=== PATIENT | female | born 1990 | race African-American/Black ===

== ENCOUNTER 2017-03-13 18:38 | Emergency (ER) | payer SELFPAY ==
[2017-03-13 18:53] VITALS: BP 128/75
[2017-03-13] MEDS ORDERED: Amoxicillin 500 MG Cap PO ONE (19:14)
--- NOTE | 2017-03-13 19:15 | EDM.PDOC ---
ED HPI GENERAL MEDICAL PROBLEM - General Chief Complaint: General Stated Complaint: FACIAL PAIN RIGHT SIDE Time Seen by Provider: 03/13/17 18:52 Source of Information: Reports: Patient History Limitations: Reports: No limitations - History of Present Illness INITIAL COMMENTS - FREE TEXT/NARRATIVE: Patient is a 27 year old female who presents to the E.D. today complaining of pain to the left side of the face/ear. States two weeks ago had onset of cold like symptoms that has gradually improved. States 4 days ago developed left sided ear pain that has progressively worsened. Has utilized ibuprofen and tylenol in alternating fashion for pain with some relief. Pain is rated a 7/10 described as a dull ache/ sharp. States with laying down the ear pain worsens. Patient denies any sinus congestion, runny nose, fever/chills, n/v, generalized body aches, vision changes, dizziness, or any additional complaints. Onset: gradual Duration: Constant Location: Reports: head Quality: Reports: Ache, Sharp Severity: moderate Improves with: Reports: Medication Worsens with: Reports: None Context: Reports: Other (sick) Associated Symptoms: Reports: no other symptoms Treatments OPHTHALMIC DISPENSER: Reports: Acetaminophen, NSAIDS Left Head Pain Score (Numeric/FACES): 5 - Related Data Allergies Allergy/AdvReac Type Severity Reaction Status Date / Time No Known Allergies Allergy Verified 03/13/17 18:53 Home Meds: Home Meds Amoxicillin 875 mg PO BID #14 tab 03/13/17 [Rx] metFORMIN [Glucophage XR] 500 mg BID 03/13/17 [History] Past Medical History HEENT History: Reports: Impaired vision Other HEENT History: Wears glasses Gastrointestinal History: Reports: Helicobacter pylori, PUD 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: Endocrine/Metabolic History: Reports: Diabetes, type II, Obesity/BMI 30+ - Past Surgical History GI Surgical History: Reports: Cholecystectomy, Hernia repair/other Female Surgical History: Reports: section Social & Family History - Family History Family Medical History: Noncontributory - Tobacco Use Smoking Status *Q: Unknown Ever Smoked Years of Tobacco use: 6 Packs/Tins Daily: 0.5 Used Tobacco, but Quit: Yes Month Tobacco Last Used: 2013 Second Hand Smoke Exposure: No - Caffeine Use Caffeine Use: Reports: None - Recreational Drug Use Recreational Drug Use: No - Living Situation & Occupation Living situation: Reports: , with spouse Occupation: employed ([employer]) ED ROS GENERAL - Review of Systems Review Of Systems: See Below Constitutional: Reports: no symptoms HEENT: Reports: Ear pain. Denies: Dental pain, Eye pain, Nose pain, Sinus problem, Throat pain, Vision change Respiratory: Reports: No Symptoms Cardiovascular: Reports: No symptoms GI/Abdominal: Reports: No symptoms : Reports: no symptoms Musculoskeletal: Reports: no symptoms Skin: Reports: no symptoms Neurological: Denies: Dizziness, Headache ED EXAM, GENERAL - Physical Exam Exam: See Below Exam Limited By: No limitations General Appearance: alert, WD/WN, no apparent distress Eye Exam: bilateral eye: PERRL Ears: normal external exam, normal canal, hearing grossly normal, other ( redness noted to the left TM with dullness. TM intact. ) Ear Exam: left ear: TM dull, TM red, right ear: TM normal Nose: normal inspection, normal mucosa, no blood Throat/Mouth: Normal inspection, Normal oropharynx, Normal voice, No airway compromise Head: atraumatic, normocephalic Neck: normal inspection, supple, non-tender, full range of motion, lymphadenopathy (L). No: lymphadenopathy (R) Respiratory/Chest: no respiratory distress, lungs clear, normal breath sounds, no accessory muscle use Cardiovascular: normal peripheral pulses, regular rate, rhythm Peripheral Pulses: 2+: radial (R) GI/Abdominal: normal bowel sounds, soft, non tender, no organomegaly, no distention Neurological: alert, oriented, CN II-XII intact, normal cognition, no motor/ sensory deficits Psychiatric: normal affect, normal mood Skin Exam: Warm, Dry, Intact, Normal color, No rash Course - Vital Signs Last Recorded V/S: Last Vital Signs Temp 97.3 F 03/13/17 18:50 Pulse 78 03/13/17 18:50 Resp 18 03/13/17 18:50 BP 128/75 03/13/17 18:50 Pulse Ox 100 03/13/17 18:50 - Orders/Labs/Meds Meds: Medications Discontinued Medications Generic Name Dose Route Start Last Admin Trade Name Freq PRN Reason Stop Dose Admin Amoxicillin 1,000 mg 03/13/17 19:14 Amoxil PO 03/13/17 19:15 ONETIME ONE - Re-Assessments/Exams Free Text/Narrative Re-Assessment/Exam: Ordered amoxicillin 1000 mg PO x 1 here in the E.D. Will discharge patient home with prescription for amoxicillin 875mg po twice a day for 7 days and instructions. Departure - Departure Time of Disposition: 19:15 Disposition: Home, Self-Care 01 Condition: good Clinical Impression: Otitis media Qualifiers: Otitis media type: unspecified Laterality: left Chronicity: unspecified Qualified Code(s): H66.92 - Otitis media, unspecified, left ear Prescriptions: Amoxicillin 875 mg PO BID #14 tab Referrals: Elizabeth Francisco PA-C [Primary Care Provider] - Forms: ED Department Discharge Additional Instructions: Take the full course of antibiotics as prescribed. Suggest utilizing over-the- counter probiotics for diarrhea. Utilize Tylenol and ibuprofen in alternating fashion for pain. Can apply warm compress to left ear for discomfort. Followup with your primary care provider at the conclusion of therapy if symptoms do not resolve. Return to the ED for any new or worsening symptoms.
== END 2017-03-13 19:30 | disposition home or self-care (01) ==
LOC: SUPCPDRO 18:38 → JD.ED 18:38
DX: H66.92 Otitis media, unspecified, left ear (principal); E11.9 Type 2 diabetes mellitus without complications; E66.9 Obesity, unspecified; Z79.84 Long term (current) use of oral hypoglycemic drugs; Z90.49 Acquired absence of other specified parts of digestive tract
CPT/HCPCS: 99283; A9270

== ENCOUNTER 2017-07-28 20:15 | Emergency (ER) | payer MEDICAID ==
[2017-07-28 20:26] VITALS: BP 132/84
--- NOTE | 2017-07-28 21:18 | EDM.PDOC ---
ED HPI GENERAL MEDICAL PROBLEM - General Chief Complaint: ENT Problem Stated Complaint: TOOTH PAIN/HEAD PAIN AND JAW PAIN Time Seen by Provider: 07/28/17 21:02 Source of Information: Reports: Patient History Limitations: Reports: No Limitations - History of Present Illness INITIAL COMMENTS - FREE TEXT/NARRATIVE: Patient is a 27-year-old female presents the ED complaining of right-sided facial pain. Patient is a history of smoking DKA to all 4 wisdom teeth. She has been seen by a dentist recently prescribed hydrocodone, amoxicillin, and ibuprofen. She is scheduled to see a oral surgeon August 05 to have all wisdom teeth removed. Patient been experiencing sharp right-sided facial pain that comes and goes. Pain is intermittent last for short period of time but is quite intense. She hasn't taken ibuprofen and amoxicillin as prescribed. She does not like taking the [place] hydrocodone centimeter feel weird. Frequency of discomfort has increased. She presents ED with no complaints at this time. She is afebrile. She is wondering if there is any additional reason to why she is having this discomfort. She has no history of trigeminal neuralgia. There's been no recent trauma. Denies any sinus congestion, runny nose, ear pain, sore throat, nausea/vomiting, neck discomfort, fever/chills, or any additional complaints. Headache Pain Score (Numeric/FACES): 6 - Related Data Allergies Allergy/AdvReac Type Severity Reaction Status Date / Time No Known Allergies Allergy Verified 03/13/17 18:53 Home Meds: Home Meds Amoxicillin 500 mg PO TID 07/28/17 [History] Hydrocodibu 7.5 - 200 mg PO BEDTIME 07/28/17 [History] Ibuprofen [Motrin] 800 mg PO ASDIRECTED 07/28/17 [History] SitaGLIPtin [Januvia] 100 mg PO DAILY 07/28/17 [History] Sucralfate [Carafate] 1 gram PO QID 07/28/17 [History] Past Medical History HEENT History: Reports: Impaired Vision Other HEENT History: Wears glasses Gastrointestinal History: Reports: Helicobacter Pylori, [employer] 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: Endocrine/Metabolic History: Reports: Diabetes, Type II, Obesity/BMI 30+ - Past Surgical History GI Surgical History: Reports: Cholecystectomy, Hernia Repair/Other Female Surgical History: Reports: Section Social & Family History - Family History Family Medical History: Noncontributory - Tobacco Use Smoking Status *Q: Never Smoker Years of Tobacco use: 6 Packs/Tins Daily: 0.5 Used Tobacco, but Quit: Yes Month Tobacco Last Used: 2013 Second Hand Smoke Exposure: No - Caffeine Use Caffeine Use: Reports: None - Recreational Drug Use Recreational Drug Use: No - Living Situation & Occupation Living situation: Reports: , with Spouse Occupation: Employed ED ROS ENT - Review of Systems Review Of Systems: ROS reveals no pertinent complaints other than HPI. ED EXAM, ENT - Physical Exam Exam: See Below Exam Limited By: No Limitations General Appearance: Alert, WD/WN, No Apparent Distress Ears: Normal External Exam, Normal Canal, Hearing Grossly Normal, Normal TMs Nose: Normal Inspection, Normal Mucousa, No Blood Mouth/Throat: Normal Inspection, Dental Pain, Dental Tenderness, Dental Trauma, Other (Poor dental decay to all 4 wisdom teeth. ). No: Dental Abcess, Dry Mucous Membrane, Gum Swelling, Tonsillar Erythema, Tonsillar Exudates, Tonsillar Swelling, Trismus, Uvular Deviation Neck: Normal Inspection, Supple, Non-Tender, Full Range of Motion. No: Lymphadenopathy (L), Lymphadenopathy (R) Respiratory/Chest: No Respiratory Distress, Lungs Clear, Normal Breath Sounds, No Accessory Muscle Use, Chest Non-Tender Cardiovascular: Normal Peripheral Pulses, Regular Rate, Rhythm Neurological: Alert, Oriented, CN II-XII Intact, Normal Cognition, No Motor/ Sensory Deficits Psychiatric: Normal Affect, Normal Mood Skin: Warm, Dry, Intact, Normal Color Course - Vital Signs Last Recorded V/S: Last Vital Signs Temp 97.4 F 07/28/17 20:24 Pulse 59 L 07/28/17 20:24 Resp 20 07/28/17 20:24 BP 132/84 07/28/17 20:24 Pulse Ox 95 07/28/17 20:24 - Re-Assessments/Exams Free Text/Narrative Re-Assessment/Exam: Exam found four wisdom teeth that are significantly decayed with nerve exposed. No swelling to the gumline noted. No swelling to the face noted. Suspect cause of discomfort related to exposed nerves from the wisdom teeth. No change in current treatment will be initiated. She will continue taking amoxicillin, ibuprofen, and hydrocodone. Discharge instructions as documented. Departure - Departure Time of Disposition: 21:16 Disposition: Home, Self-Care 01 Condition: Good Clinical Impression: Dental caries, Dental caries extending into dentin, Pain due to dental caries - Discharge Information Instructions: Dental Caries Referrals: Elizabeth Francisco PA-C [Primary Care Provider] - Forms: ED Department Discharge Additional Instructions: Continue taking the amoxicillin, hydrocodone, and ibuprofen as prescribed. No driving while taking the hydrocodone. Keep appointment with oral surgeon as scheduled. See your dentist if you should have any further issues between now and then. Return to the ED for any new or worsening symptoms.
== END 2017-07-28 21:30 | disposition home or self-care (01) ==
LOC: JD.ED 20:15
DX: K02.9 Dental caries, unspecified (principal); E11.9 Type 2 diabetes mellitus without complications; E66.9 Obesity, unspecified; Z79.899 Other long term (current) drug therapy; Z90.49 Acquired absence of other specified parts of digestive tract; Z68.41 Body mass index [BMI] 40.0-44.9, adult
CPT/HCPCS: 99282; 99283

== ENCOUNTER 2018-03-03 14:27 | Emergency (ER) | payer MEDICAID ==
[2018-03-03 14:36] VITALS: BP 122/76
--- NOTE | 2018-03-03 15:30 | EDM.PDOC ---
<Shameka Stevens - Last Filed: 03/03/18 16:55> ED HPI GENERAL MEDICAL PROBLEM - General Chief Complaint: Gastrointestinal Problem Stated Complaint: CHEST PAIN Time Seen by Provider: 03/03/18 14:50 Source of Information: Reports: Patient History Limitations: Reports: No Limitations - History of Present Illness INITIAL COMMENTS - FREE TEXT/NARRATIVE: Patient is a 28 YO female who presents today for heart palpitations. She states this started 3-4 days ago while watching TV. She states it feels like her heart is beating really fast and causes her shortness of breath and makes her feel warm. She does not have pain associated with these episodes. This lasts 15-20 seconds and then resolves. These episodes have increased in frequency and now occur several times per hour. She states she is now feeling fatigued and slightly dizzy but denies syncope. She was diagnosed with diabetes last year. She states over the past 2 weeks her sugars have been running high around 270. Her normal is around 150. She states she has an appointment scheduled with her PCP to address her elevated blood sugars. She admits to polydypsia and polyuria. She has baseline gastric reflux which she takes omeprazole every morning. She doesn't think her gastric reflux has been worse recently. She denies fever, chills, cough, headaches, nausea, vomiting or diarrhea. 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: Endocrine/Metabolic History: Reports: Diabetes, Type II, Obesity/BMI 30+ - Past Surgical History GI Surgical History: Reports: Cholecystectomy, Hernia Repair/Other Female Surgical History: Reports: Section Social & Family History - Family History Family Medical History: Noncontributory - Tobacco Use Smoking Status *Q: Former Smoker Years of Tobacco use: 6 Packs/Tins Daily: 0.5 Used Tobacco, but Quit: Yes Month/Year Tobacco Last Used: 5 years ago Second Hand Smoke Exposure: No - Caffeine Use Caffeine Use: Reports: Soda - Recreational Drug Use Recreational Drug Use: No - Living Situation & Occupation Living situation: Reports: , with Spouse Occupation: Employed ED ROS GENERAL - Review of Systems Review Of Systems: See Below Constitutional: Reports: Fatigue. Denies: Fever, Chills, Weakness Respiratory: Reports: Shortness of Breath (during episodes). Denies: Pleuritic Chest Pain, Cough Cardiovascular: Reports: Palpitations. Denies: Chest Pain Endocrine: Reports: High Glucose, Polydypsia, Polyuria GI/Abdominal: Reports: Abdominal Pain (epigastric pain). Denies: Constipation, Diarrhea, Nausea, Vomiting : Reports: No Symptoms Musculoskeletal: Reports: No Symptoms Skin: Reports: No Symptoms Neurological: Reports: No Symptoms Psychiatric: Reports: No Symptoms ED EXAM, GI/ABD - Physical Exam Exam: See Below Exam Limited By: No Limitations General Appearance: Alert, WD/WN, No Apparent Distress Eyes: Bilateral: EOMI Head: Atraumatic Respiratory/Chest: No Respiratory Distress, Lungs Clear, Normal Breath Sounds Cardiovascular: Normal Peripheral Pulses, Regular Rate, Rhythm, No Edema, Systolic Murmur (harsh systolic ejection click) GI/Abdominal Exam: Normal Bowel Sounds, Soft, Tender (epigastric tenderness) Neurological: Alert, Oriented, CN II-XII Intact, Normal Cognition Psychiatric: Normal Affect, Normal Mood Skin Exam: Warm, Dry, Intact EKG INTERPRETATION EKG Date: 03/03/18 Time: 15:45 Rhythm: NSR Rate (Beats/Min): 62 [place]: Normal P-Wave: Present QRS: Normal ST-T: Normal QT: Normal EKG Interpretation Comments: Normal EKG Course - Vital Signs Last Recorded V/S: Last Vital Signs Temp 97.3 F 03/03/18 14:33 Pulse 73 03/03/18 14:33 Resp 18 03/03/18 14:33 BP 122/76 03/03/18 14:33 Pulse Ox 96 03/03/18 14:33 - Orders/Labs/Meds Orders: Active Orders 24 hr Category Date Time Status EKG Documentation Completion [RC] ASDIRECTED Care 03/03/18 15:04 Active Holter Monitor 48 Hours [RC] .PRN Care 03/03/18 16:51 Active DRUG SCREEN, URINE [URCHEM] Stat Lab 03/03/18 15:20 Ordered HCG QUALITATIVE,URINE [URCHEM] Stat Lab 03/03/18 15:20 Ordered EKG 12 Lead [EK] Stat Ther 03/03/18 15:03 Ordered Labs: Laboratory Tests 03/03/18 03/03/18 03/03/18 Range/Units 15:15 15:15 15:15 WBC 8.66 (3.98-10.04) K/mm3 RBC 5.61 H (3.98-5.22) M/mm3 Hgb 14.9 (11.2-15.7) gm/L Hct 44.1 (34.1-44.9) % MCV 78.6 L (79.4-94.8) fl MCH 26.6 (25.6-32.2) pg MCHC 33.8 (32.2-35.5) g/dl RDW Std Deviation 42.9 (36.4-46.3) fL Plt Count 144 L (182-369) K/mm3 MPV 12.8 H (9.4-12.3) fl Neut % (Auto) 54.9 (34.0-71.1) % Lymph % (Auto) 36.1 (19.3-51.7) % [place] % (Auto) 6.5 (4.7-12.5) % Eos % (Auto) 2.1 (0.7-5.8) Baso % (Auto) 0.2 (0.1-1.2) % Neut # (Auto) 4.75 (1.56-6.13) K/mm3 Lymph # (Auto) 3.13 (1.18-3.74) K/mm3 [place] # (Auto) 0.56 H (0.24-0.36) K/mm3 Eos # (Auto) 0.18 (0.04-0.36) K/mm3 Baso # (Auto) 0.02 (0.01-0.08) K/mm3 Sodium 142 (136-145) mEq/L Potassium 3.6 (3.5-5.1) mEq/L Chloride 107 (98-107) mEq/L Carbon Dioxide 22 (21-32) mEq/L Anion Gap 16.6 H (5-15) BUN 12 (7-18) mg/dL Creatinine 0.8 (0.55-1.02) mg/dL Est Cr Clr Drug Dosing 101.81 mL/min Estimated GFR (MDRD) > 60 (>60) mL/min BUN/Creatinine Ratio 15.0 (14-18) Glucose 181 H (74-106) mg/dL Calcium 9.6 (8.5-10.1) mg/dL Total Bilirubin 0.3 (0.2-1.0) mg/dL AST 75 H (15-37) U/L ALT 91 H (14-59) U/L Alkaline Phosphatase 56 (46-116) U/L C-Reactive Protein 1.3 H* (<1.0) mg/dL Total Protein 8.1 (6.4-8.2) g/dl Albumin 3.8 (3.4-5.0) g/dl Globulin 4.3 gm/dL Albumin/Globulin Ratio 0.9 L (1-2) Lipase (73-393) U/L TSH 3rd Generation 2.223 (0.358-3.74) uIU/mL Urine Color (Yellow) Urine Appearance (Clear) Urine pH (5.0-8.0) Ur Specific [place] (1.005-1.030) Urine Protein (Negative) Urine Glucose (UA) (Negative) Urine Ketones (Negative) Urine Occult Blood (Negative) Urine Nitrite (Negative) Urine Bilirubin (Negative) Urine Urobilinogen (0.2-1.0) Ur Leukocyte Esterase (Negative) Urine RBC (0-5) /hpf Urine WBC (0-5) /hpf Ur Epithelial Cells (0-5) /hpf Urine Bacteria (FEW) /hpf Urine Mucus (FEW) /hpf Urine HCG, Qual (NEGATIVE) Urine Opiates Screen (NEGATIVE) Ur Buprenorphine Scrn (NEGATIVE) Ur Oxycodone Screen (NEGATIVE) Urine Methadone Screen (NEGATIVE) Ur Propoxyphene Screen (NEGATIVE) Ur Barbiturates Screen (NEGATIVE) Ur Tricyclics Screen (NEGATIVE) Ur Phencyclidine Scrn (NEGATIVE) Ur Amphetamine Screen (NEGATIVE) U Methamphetamines Scrn (NEGATIVE) U Benzodiazepines Scrn (NEGATIVE) U Cocaine Metab Screen (NEGATIVE) U Marijuana (THC) Screen (NEGATIVE) 03/03/18 03/03/18 03/03/18 Range/Units 15:15 15:20 15:20 WBC (3.98-10.04) K/mm3 RBC (3.98-5.22) M/mm3 Hgb (11.2-15.7) gm/L Hct (34.1-44.9) % MCV (79.4-94.8) fl MCH (25.6-32.2) pg MCHC (32.2-35.5) g/dl RDW Std Deviation (36.4-46.3) fL Plt Count (182-369) K/mm3 MPV (9.4-12.3) fl Neut % (Auto) (34.0-71.1) % Lymph % (Auto) (19.3-51.7) % [place] % (Auto) (4.7-12.5) % Eos % (Auto) (0.7-5.8) Baso % (Auto) (0.1-1.2) % Neut # (Auto) (1.56-6.13) K/mm3 Lymph # (Auto) (1.18-3.74) K/mm3 [place] # (Auto) (0.24-0.36) K/mm3 Eos # (Auto) (0.04-0.36) K/mm3 Baso # (Auto) (0.01-0.08) K/mm3 Sodium (136-145) mEq/L Potassium (3.5-5.1) mEq/L Chloride (98-107) mEq/L Carbon Dioxide (21-32) mEq/L Anion Gap (5-15) BUN (7-18) mg/dL Creatinine (0.55-1.02) mg/dL Est Cr Clr Drug Dosing mL/min Estimated GFR (MDRD) (>60) mL/min BUN/Creatinine Ratio (14-18) Glucose (74-106) mg/dL Calcium (8.5-10.1) mg/dL Total Bilirubin (0.2-1.0) mg/dL AST (15-37) U/L ALT (14-59) U/L Alkaline Phosphatase (46-116) U/L C-Reactive Protein (<1.0) mg/dL Total Protein (6.4-8.2) g/dl Albumin (3.4-5.0) g/dl Globulin gm/dL Albumin/Globulin Ratio (1-2) Lipase 225 (73-393) U/L TSH 3rd Generation (0.358-3.74) uIU/mL Urine Color Yellow (Yellow) Urine Appearance Clear (Clear) Urine pH 6.0 (5.0-8.0) Ur Specific [place] 1.020 (1.005-1.030) Urine Protein Negative (Negative) Urine Glucose (UA) 2+ H (Negative) Urine Ketones Trace H (Negative) Urine Occult Blood Negative (Negative) Urine Nitrite Negative (Negative) Urine Bilirubin Negative (Negative) Urine Urobilinogen 0.2 (0.2-1.0) Ur Leukocyte Esterase Negative (Negative) Urine RBC 0-5 (0-5) /hpf Urine WBC 5-10 H (0-5) /hpf Ur Epithelial Cells 5-10 H (0-5) /hpf Urine Bacteria Few (FEW) /hpf Urine Mucus Few (FEW) /hpf Urine HCG, Qual Negative (NEGATIVE) Urine Opiates Screen (NEGATIVE) Ur Buprenorphine Scrn (NEGATIVE) Ur Oxycodone Screen (NEGATIVE) Urine Methadone Screen (NEGATIVE) Ur Propoxyphene Screen (NEGATIVE) Ur Barbiturates Screen (NEGATIVE) Ur Tricyclics Screen (NEGATIVE) Ur Phencyclidine Scrn (NEGATIVE) Ur Amphetamine Screen (NEGATIVE) U Methamphetamines Scrn (NEGATIVE) U Benzodiazepines Scrn (NEGATIVE) U Cocaine Metab Screen (NEGATIVE) U Marijuana (THC) Screen (NEGATIVE) 03/03/18 Range/Units 15:20 WBC (3.98-10.04) K/mm3 RBC (3.98-5.22) M/mm3 Hgb (11.2-15.7) gm/L Hct (34.1-44.9) % MCV (79.4-94.8) fl MCH (25.6-32.2) pg MCHC (32.2-35.5) g/dl RDW Std Deviation (36.4-46.3) fL Plt Count (182-369) K/mm3 MPV (9.4-12.3) fl Neut % (Auto) (34.0-71.1) % Lymph % (Auto) (19.3-51.7) % [place] % (Auto) (4.7-12.5) % Eos % (Auto) (0.7-5.8) Baso % (Auto) (0.1-1.2) % Neut # (Auto) (1.56-6.13) K/mm3 Lymph # (Auto) (1.18-3.74) K/mm3 [place] # (Auto) (0.24-0.36) K/mm3 Eos # (Auto) (0.04-0.36) K/mm3 Baso # (Auto) (0.01-0.08) K/mm3 Sodium (136-145) mEq/L Potassium (3.5-5.1) mEq/L Chloride (98-107) mEq/L Carbon Dioxide (21-32) mEq/L Anion Gap (5-15) BUN (7-18) mg/dL Creatinine (0.55-1.02) mg/dL Est Cr Clr Drug Dosing mL/min Estimated GFR (MDRD) (>60) mL/min BUN/Creatinine Ratio (14-18) Glucose (74-106) mg/dL Calcium (8.5-10.1) mg/dL Total Bilirubin (0.2-1.0) mg/dL AST (15-37) U/L ALT (14-59) U/L Alkaline Phosphatase (46-116) U/L C-Reactive Protein (<1.0) mg/dL Total Protein (6.4-8.2) g/dl Albumin (3.4-5.0) g/dl Globulin gm/dL Albumin/Globulin Ratio (1-2) Lipase (73-393) U/L TSH 3rd Generation (0.358-3.74) uIU/mL Urine Color (Yellow) Urine Appearance (Clear) Urine pH (5.0-8.0) Ur Specific [place] (1.005-1.030) Urine Protein (Negative) Urine Glucose (UA) (Negative) Urine Ketones (Negative) Urine Occult Blood (Negative) Urine Nitrite (Negative) Urine Bilirubin (Negative) Urine Urobilinogen (0.2-1.0) Ur Leukocyte Esterase (Negative) Urine RBC (0-5) /hpf Urine WBC (0-5) /hpf Ur Epithelial Cells (0-5) /hpf Urine Bacteria (FEW) /hpf Urine Mucus (FEW) /hpf Urine HCG, Qual (NEGATIVE) Urine Opiates Screen Negative (NEGATIVE) Ur Buprenorphine Scrn Negative (NEGATIVE) Ur Oxycodone Screen Negative (NEGATIVE) Urine Methadone Screen Negative (NEGATIVE) Ur Propoxyphene Screen Negative (NEGATIVE) Ur Barbiturates Screen Negative (NEGATIVE) Ur Tricyclics Screen Negative (NEGATIVE) Ur Phencyclidine Scrn Negative (NEGATIVE) Ur Amphetamine Screen Negative (NEGATIVE) U Methamphetamines Scrn Negative (NEGATIVE) U Benzodiazepines Scrn Negative (NEGATIVE) U Cocaine Metab Screen Negative (NEGATIVE) U Marijuana (THC) Screen Negative (NEGATIVE) - Re-Assessments/Exams Free Text/Narrative Re-Assessment/Exam: 03/03/18 15:20 Labs ordered to include CBC, CMP, CRP, UA, HCG, Drug screen, Lipase and EKG. 03/03/18 16:11 Labs reviewed: RBC slightly elevated at 5.61, platelets low at 144, Glucose 181 , CRP 1.3, liver enzymes slightly elevated which patient is aware from labs drawn through her PCP. AST 75, ALT 91. Anion gap 16.6, TSH 2.223. Urine shows 2 + glucose, Trace ketones, and 5-10 WBC and epithelial cells. EKG reviewed: normal EKG reading Labs are unremarkable for patients current symptoms. 03/03/18 16:52 Discussed lab results with the patient. Due to her continued symptoms I have recommended 48 hour holter monitoring. Patient has agreed to this. She has an appointment with Dr. Francisco tomorrow for her elevated sugars. I have recommended she keep this appointment but she will not have holter monitor results for a few weeks. Departure - Departure Disposition: Home, Self-Care 01 Clinical Impression: Intermittent palpitations - Discharge Information Instructions: Palpitations, [id number] Referrals: Elizabeth Francisco PA-C [Primary Care Provider] - Forms: ED Department Discharge, ED Return to Work/School Form Additional Instructions: Keep appt with PCP as scheduled tomorrow for reevaluation of elevated BS's. Continue to take all home medications as prescribed. Push the fluids. Holter monitor in place for the next 48 hrs. See pcp for results. Unclear cause of palpitations at this point. Epigastric discomfort is related to gastritis. Continue taking the prilosec as prescribed. Refrain from spicy foods, caffeinated beverages, chocolates, and or any other foods/drinks that cause aggravation. Do not eat or drink within 4 hours of going to bed. Return to the E.D. if you develop any new or worsening symptoms. - My Orders Last 24 Hours: My Active Orders 03/03/18 15:20 DRUG SCREEN, URINE [URCHEM] Stat HCG QUALITATIVE,URINE [URCHEM] Stat - Assessment/Plan Last 24 Hours: My Active Orders 03/03/18 15:20 DRUG SCREEN, URINE [URCHEM] Stat HCG QUALITATIVE,URINE [URCHEM] Stat <Krzysztof Crawford O - Last Filed: 03/03/18 17:13> Course - Re-Assessments/Exams Free Text/Narrative Re-Assessment/Exam: I have physically evaluated the patient myself. Reviewed all labs and studies ordered. VSS stable. Patient is not dizzy with standing/walking. [place] is moist. Reviewed results. Agree with Shameka EDWARDS. Holter monitor will ordered. She will see PCP for results and keep appt as scheduled for tomorrow. Departure - Departure Time of Disposition: 17:07 Condition: Good
== END 2018-03-03 17:20 | disposition home or self-care (01) ==
LOC: JD.ED 14:27
DX: R00.2 Palpitations (principal); E11.9 Type 2 diabetes mellitus without complications; Z79.899 Other long term (current) drug therapy; Z87.891 Personal history of nicotine dependence
CPT/HCPCS: 36415; 80053; 80306; 81001; 81025; 83690; 84443; 85025; 86140; 93005; 93010; 93225; 93226; 99284; 99285-25

== ENCOUNTER 2018-04-17 14:44 | Emergency (ER) | payer MEDICAID ==
[2018-04-17] MEDS ORDERED: diphenhydrAMINE 50 MG/ML SDV IVPUSH ONE (14:55)
[2018-04-17] MEDS ORDERED: Famotidine 20 MG/2 ML SDV IVPUSH ONE (14:55)
[2018-04-17] MEDS ORDERED: methylPREDNISolone Sodium Succinate 125 MG/2 ML SDV IVPUSH ONE (14:55)
--- NOTE | 2018-04-17 14:56 | EDM.PDOC ---
ED HPI GENERAL MEDICAL PROBLEM - General Chief Complaint: Allergic Reaction Stated Complaint: ALLERGIC RX Time Seen by Provider: 04/17/18 14:54 Source of Information: Reports: Patient History Limitations: Reports: No Limitations - History of Present Illness INITIAL COMMENTS - FREE TEXT/NARRATIVE: 28-year-old female of -Citizen Of [place] descent presents to the ED with acute onset of generalized pruritus and urticaria primarily on her face. She states this occurred within an hour of eating [place] food that she's not eaten before. Never experienced any food allergy issues in the past. She denies any tongue swelling but she does feel a bit of throat closure. She denies any wheezing or pressure in her chest. She denies any erythema. He came to the hospital within 20 minutes of developing symptoms. Onset: Today Onset Date: 04/17/18 Onset Time: 14:20 Duration: Minutes: Location: Reports: Head (Scalp), Face, Neck, Chest Quality: Reports: Other Severity: Moderate (Severe itching.) Improves with: Reports: None Worsens with: Reports: None Context: Reports: Other (Developed sudden onset is quite significant pruritus involving her face and hives on her facial cheeks and itching throughout her scalp but in generalized sense of pruritus.). Denies: Activity, Exercise, Lifting, Sick Contact, Trauma Associated Symptoms: Reports: Rash (Urticaria). 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 (see below) (None.) - Related Data Allergies Allergy/AdvReac Type Severity Reaction Status Date / Time No Known Allergies Allergy Verified 04/17/18 14:51 Home Meds: Home Meds SitaGLIPtin [Januvia] 100 mg PO DAILY 07/28/17 [History] Empagliflozin [Jardiance] 10 mg PO DAILY 03/03/18 [History] Omeprazole 20 mg PO DAILY 03/03/18 [History] glipiZIDE [Glipizide ER] 10 mg PO BID 03/03/18 [History] Past Medical History HEENT History: Reports: Impaired Vision Other HEENT History: Wears glasses Gastrointestinal History: Reports: Helicobacter Pylori, 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: Endocrine/Metabolic History: Reports: Diabetes, Type II (Controlled by diet and oral medications.), Obesity/BMI 30+ - Past Surgical History GI Surgical History: Reports: Cholecystectomy, Hernia Repair/Other Female Surgical History: Reports: Section Social & Family History - Family History Family Medical History: Noncontributory - Caffeine Use Caffeine Use: Reports: Soda - Living Situation & Occupation Living situation: Reports: , with Spouse Occupation: Employed ED ROS ALLERGIC REACTION - Review of Systems Review Of Systems: See Below Constitutional: Denies: Fever, Chills, Malaise, Weakness, Fatigue, Decreased Appetite, Weight Loss HEENT: Reports: Other (Sense of throat closure. Voice is still normal.) Respiratory: Reports: No Symptoms Cardiovascular: Reports: No Symptoms Endocrine: Reports: No Symptoms GI/Abdominal: Reports: No Symptoms : Reports: No Symptoms Musculoskeletal: Reports: No Symptoms Skin: Reports: Pruritis, Rash (Urticaria particularly on her face) Neurological: Reports: No Symptoms Psychiatric: Reports: No Symptoms Hematologic/Lymphatic: Reports: No Symptoms Immunologic: Reports: No Symptoms ED EXAM GENERAL NO PERIP PULSE - Physical Exam Exam: See Below Exam Limited By: No Limitations General Appearance: Alert, WD/WN, Anxious, Mild Distress Eye Exam: Right Eye: Normal Inspection (There is no swelling of her) Throat/Mouth: Normal Inspection, Normal Lips, Other (Uvula and floor the mouth are normal.) Head: Facial Swelling (Mild facial swelling particularly right facial cheek with urticaria.) Neck: Normal Inspection, Supple, Non-Tender, Full Range of Motion, Other. No: Lymphadenopathy (L), Lymphadenopathy (R) Respiratory/Chest: No Respiratory Distress (No stridor.), Lungs Clear, Normal Breath Sounds. No: Respiratory Distress, Wheezing Cardiovascular: Normal Peripheral Pulses, Regular Rate, Rhythm, No Edema, No Gallop, No Murmur GI/Abdominal: Normal Bowel Sounds, Soft, Non-Tender, No Organomegaly, No Distention Back Exam: Normal Inspection, Full Range of Motion. No: CVA Tenderness (L), CVA Tenderness (R) Extremities: Normal Inspection, Normal Range of Motion, Non-Tender, No Pedal Edema Neurological: Alert, Oriented, CN II-XII Intact, Normal Cognition, Normal Gait Psychiatric: Normal Affect, Anxious Skin Exam: Warm, Dry, Other (Urticarial lesions particularly on her facial cheek with itching of her scalp.) Course - Vital Signs Last Recorded V/S: Last Vital Signs Temp 37.1 C 04/17/18 14:48 Pulse 77 04/17/18 16:14 Resp 18 04/17/18 16:14 BP 111/67 04/17/18 16:14 Pulse Ox 99 04/17/18 16:14 - Orders/Labs/Meds Meds: Medications Discontinued Medications Generic Name Dose Route Start Last Admin Trade Name Lexa PRN Reason Stop Dose Admin Diphenhydramine HCl 50 mg 04/17/18 14:55 04/17/18 15:17 Benadryl IVPUSH 04/17/18 14:56 50 mg ONETIME ONE Administration Famotidine 20 mg 04/17/18 14:55 04/17/18 15:14 Pepcid IVPUSH 04/17/18 14:56 20 mg ONETIME ONE Administration Sodium Chloride 1,000 mls @ 250 mls/hr 04/17/18 15:00 04/17/18 15:13 Normal Saline IV 250 mls/hr ASDIRECTED WILBER Administration Methylprednisolone Sodium Succinate 125 mg 04/17/18 14:55 04/17/18 15:16 Solu-Medrol IVPUSH 04/17/18 14:56 125 mg ONETIME ONE Administration - Radiology Interpretation Free Text/Narrative:: 28-year-old female presents the ED within the hour of eating some [place] food that she's not been exposed to before. She states that within 20 minutes of eating the food she started to develop generalized sense of itching. She then developed hives particular in her right daisy-face and severe itching of her scalp. She then had a sense of throat closure which precipitated visit to the ED. She has no wheezing. Examination showed no oropharyngeal swelling of the uvula or for the mouth. There was no stridor. She did have urticaria on her facial cheek on the right side and some swelling. Treated with intravenous fluids normal saline at 250 mils per hour. Given Benadryl 50 mg IV with Pepcid 20 mg IV and cimetidine 125 mg IV. - Re-Assessments/Exams Free Text/Narrative Re-Assessment/Exam: 04/17/18 15:40: She reports feeling much improved the pruritus is resolving. The hives on her face are starting to go away as well. No problems breathing. Vital signs remained stable. 04/17/18 16:00: Patient was reexamined. Her urticaria is pretty well gone. She reports no further pruritus. No worsening of symptoms. She will therefore be discharged to home. May use Benadryl 50 mg every 6 hours for recurrence of similar symptoms however if she develops any trouble swallowing or breathing she is to return to the ED. Departure - Departure Time of Disposition: 15:59 Disposition: Home, Self-Care 01 Condition: Fair Clinical Impression: Allergic reaction to food Qualifiers: Encounter type: initial encounter Qualified Code(s): T78.1XXA - Other adverse food reactions, not elsewhere classified, initial encounter - Discharge Information Instructions: Food Allergy, [id number] Referrals: Elizabeth Francisco PA-C [Primary Care Provider] - Forms: ED Department Discharge Additional Instructions: Evaluation the emergency room today in regards to development of allergic response to something you have eaten today. As you mentioned you had eaten [place] food that may contain numerous herbs and/or spices one of which you are allergic to. She did break out in hives particularly on her face with generalized itching. You're therefore treated with intravenous medications Benadryl 50 mg with Solu-Medrol 125 mg and Pepcid 20 mg IV to bring the allergic reaction under control. Obviously need to avoid this type of food in the future. If symptoms recur such as itching or develop an of hives may repeat Benadryl 50 mg by mouth every 6 hours as needed. Usually it does not recur since you had Solu-Medrol given intravenously which starts to work in 4-6 hours time. This usually prevents late phase reactions. If any further problems develop such as shortness of breath wheezing or recurrence of hives return to the ED.
[2018-04-17] MEDS ORDERED: Sodium Chloride 0.9% 1,000 ML IV SCH (15:00)
[2018-04-17 16:15] VITALS: BP 111/67
== END 2018-04-17 16:10 | disposition home or self-care (01) ==
LOC: JD.ED 14:44
DX: T78.1XXA Other adverse food reactions, not elsewhere classified, initial encounter (principal); E11.9 Type 2 diabetes mellitus without complications; Z79.899 Other long term (current) drug therapy
CPT/HCPCS: 96361; 96374; 96375; 99283; J1200; J2930; J7040